=== PATIENT | male | born 1955 | race Caucasian/White ===

== ENCOUNTER 2019-01-31 22:58 | Observation (INO) ==
[2019-01-31] MEDS ORDERED: Ipratropium/Albuterol Neb 3 ML IH ONE (23:08)
--- NOTE | 2019-01-31 23:18 | Emergency Department Note ---
Disposition Clinical Impression: Near syncope, [place] (acute kidney injury) Congestive heart failure Qualifiers: Heart failure type: unspecified Heart failure chronicity: acute on chronic Qualified Code(s): I50.9 - Heart failure, unspecified Disposition: Admitted As Inpatient Condition: Undetermined Referrals: NONE,PCP [Primary Care Provider] - Forms: ED Satisfaction Letter Time of Disposition: 02:22 SOB HPI - General Chief Complaint: ED Shortness of Breath/Dyspnea Stated Complaint: weakness DEMARCUS Time Seen by Provider: 01/31/19 23:07 Source: patient, EMS Mode of arrival: EMS Limitations: no limitations Nursing Notes Reviewed: Yes Vital Signs Reviewed: Yes - History of Present Illness 63-year-old male with history of congestive heart failure, previous history of [place], with a pacemaker, hypertension, hyperlipidemia, COPD arrives to the emerge ncy department with complaint of generalized weakness, charley horses, cramping and shortness of breath. Patient states this started a couple days ago is progressively worsening. Patient's daughter advised that she come to the emergency department. Patient arrives via EMS. He was given a DuoNeb and 500 mL of IV fluids in route. Patient has bilateral lower extremity swelling. Patient denies any chest pain, abdominal pain, nausea, vomiting, diarrhea. He admits to some intermittent chills. No other acute process noted. - Related Data Home Medications Medication Instructions Recorded Confirmed Aspirin Enteric Coated [Aspirin EC] 81 mg PO DAILY 07/22/15 02/13/16 Atorvastatin [Lipitor] 40 mg PO HS 07/22/15 02/13/16 Benazepril HCl [Lotensin] 40 mg PO DAILY 07/22/15 02/13/16 Meloxicam [Mobic] 15 mg PO DAILY 07/22/15 02/13/16 amLODIPine [Norvasc] 5 mg PO DAILY 07/22/15 02/13/16 hydroCHLOROthiazide 25 mg PO DAILY 07/22/15 02/13/16 [Hydrochlorothiazide] Hydrocortisone [Cortef] 5 mg PO QPM 02/13/16 02/13/16 Hydrocortisone [Cortef] 15 mg PO QAM 02/13/16 02/13/16 Levothyroxine [Synthroid] 88 mcg PO DAILY 02/13/16 02/13/16 Previous Rx's Medication Instructions Recorded Albuterol Sulfate [Ventolin Hfa] 18 gm IH Q4HR PRN #1 hfa.aer.ad 02/14/16 GuaiFENesin/Codeine [Robitussin 5 ml PO Q6HR PRN #150 liquid 02/14/16 w/Codeine] levoFLOXacin [Levaquin] 500 mg PO DAILY #7 tablet 02/14/16 Furosemide [Lasix] 40 mg PO DAILY #7 tablet 02/24/17 Potassium Chloride [K-Tab ER] 20 meq PO DAILY #7 tablet.er 02/24/17 Allergies Allergy/AdvReac Type Severity Reaction Status Date / Time carvedilol AdvReac Chest Pain Verified 02/13/16 11:00 metoprolol AdvReac Hypotension Verified 02/13/16 11:00 All systems ED: reviewed and negative except as stated. Constitutional: Reports: chills, weakness. Denies: fever Eyes: Denies: vision change ENT ED: Denies: dysphagia Cardiovascular: Reports: edema. Denies: chest pain, dyspnea on exertion, orthopnea, syncope Respiratory: Reports: cough, dyspnea. Denies: wheezes, sputum production Gastrointestinal: Denies: abdominal pain, nausea, vomiting Genitourinary: Denies: urgency, dysuria Musculoskeletal: Reports: myalgia. Denies: back pain, neck pain Integumentary: Denies: rash Neurological: Denies: headache Past Medical History - Past Medical History Attestation: Yes The following information was validated with the patient. Source: patient, old records reviewed Medical history: Reports: arthritis, coronary artery disease, GERD, hyperlipidemia, hypertension, myocardial infarction, thyroid disease Surgical history: Reports: coronary bypass (CABG), herniorrhaphy Psychiatric history: Reports: no psych history - Social History Smoking Status: Never smoker Smokeless Tobacco Status: No Alcohol use: Reports: none Drug use: Reports: none Physical Exam - General Limitations: no limitations General appearance: alert, in no apparent distress - Head Head exam: atraumatic, normocephalic, normal inspection - Eye Eye exam: Present: normal appearance, PERRL, EOMI - ENT ENT exam: normal exam, normal oropharynx, mucous membranes moist - Neck Neck exam: Present: normal inspection, full ROM, trachea midline - Chest Chest inspection: Present: normal inspection, symmetric chest wall rise - Respiratory Respiratory exam: Present: other (Coarse breath sounds with bibasilar rales). Absent: respiratory distress, wheezes - Cardiovascular Cardiovascular exam: Present: regular rate, normal rhythm, normal heart sounds - Abdominal Exam Abdominal exam: Present: soft, Non-Tender. Absent: tenderness, distention, guarding, rebound, rigidity - Extremities Exam Extremities exam: Present: full ROM, normal capillary refill, pedal edema (2+ pitting). Absent: tenderness - Neurological Exam Neurological exam: Present: alert, oriented X3 - Skin Skin exam: Present: warm, dry, intact, normal color Course Vital Signs Temperature 98.2 F 01/31/19 23:04 Pulse Rate 93 01/31/19 23:04 Respiratory Rate 22 01/31/19 23:04 Blood Pressure 148/119 01/31/19 23:04 O2 Sat by Pulse Oximetry 95 01/31/19 23:04 Temperature 98.2 F 01/31/19 23:04 Pulse Rate 81 02/01/19 01:25 Respiratory Rate 18 02/01/19 01:25 Blood Pressure 100/53 02/01/19 01:25 O2 Sat by Pulse Oximetry 95 02/01/19 01:25 Oxygen Delivery Oxygen Delivery Room Air Shortness of Breath/Dyspnea - [facility] Narrative Medical decision making narrative: Patient's workup in the emergency department demonstrates no acute process to account for patient's symptoms. She does have a mild acute kidney injury. Upon further questioning this with patient's daughter stated the patient had a near syncopal episode. He fell and struck his head but did not lose consciousness not complaining of any pain at this time. He takes no anticoagulation. The patient will be administered some IV Lasix here in the ED and will be admitted to the hospital for further workup and observation. Patient made aware and agrees to plan. No further questions or concerns noted. - Lab Data Lab results reviewed: Yes I reviewed the patient's lab results. Result diagrams: 02/01/19 00:09 02/01/19 00:09 Lab Results 02/01/19 02/01/19 02/01/19 Range/Units 00:09 00:09 00:09 WBC 17.0 H (4.3-11.1) K/mcL RBC 4.30 (4.19-5.50) M/mcL Hgb 13.6 (12.9-16.9) g/dL Hct 40.3 (37.5-50.1) % MCV 93.7 (83.0-100.0) fL MCH 31.6 (28.0-33.3) pg MCHC 33.7 (31.6-35.5) g/dL RDW 13.6 (11.5-14.5) % Plt Count 210 (140-400) K/mcL MPV 10.8 (9.4-12.4) fL Immature Gran % 0.8 (0-4) % Seg Neutrophils % 89.4 % Lymphocytes % 3.3 % Monocytes % 5.9 % Eosinophils % 0.2 % Basophils % 0.4 % Neutrophils # 15.2 H (1.6-8.9) K/mcL Lymphocytes # 0.6 (0.6-4.6) K/mcL Monocytes # 1.0 (0.0-1.3) K/mcL Eosinophils # 0.0 (0.0-0.6) K/mcL Basophils # 0.1 (0.0-0.2) K/mcL Sodium 136 (136-145) mEq/L Potassium 3.4 L (3.5-5.1) mEq/L Chloride 99 (98-107) mEq/L Carbon Dioxide 27 (23-29) mEq/L BUN 27 H (8-23) mg/dL Creatinine 1.54 H (0.70-1.30) mg/dL Est GFR ( Amer) 55 L (> 60) Est GFR (Non-Af Amer) 46 L (> 60) BUN/Creatinine Ratio 18 (6-26) Glucose 132 H (70-105) mg/dL Calculated Osmolality 289 (280-300) Calcium 9.1 (8.6-10.3) mg/dL Troponin I 0.03 (< 0.04) ng/mL B-Natriuretic Peptide 44 (Less than 100) pg/mL - Radiology Data Radiology results reviewed: Yes I reviewed the patient's radiology results. Chest X-Ray 01/31/19 23:07 IMPRESSION: Stable study showing large hiatal hernia. D/ / Gayatri Hsu Cha, MD / Gayatri Hsu Cha, MD Interpreting Provider: Gayatri Hsu Cha, MD - EKG Data EKG results narrative: Heart rate 84 beats for minute. Normal sinus rhythm with left bundle branch block. Intermittent episodes of paced rhythm. The patient does have some ST depression and ST elevation that appears similar to previous EKG of from 02/24/2017. The patient does NOT meet Sgarbossa criteria for ACS.
[2019-02-01 00:53] LABS: Basophils # 0.1 K/mcL (0.0-0.2); Basophils % 0.4 %; Eosinophils % 0.2 %; Hematocrit 40.3 % (37.5-50.1); Hemoglobin 13.6 g/dL (12.9-16.9); Immature Granulocytes % 0.8 % (0-4); Lymphocytes # 0.6 K/mcL (0.6-4.6); Lymphocytes % 3.3 %; Mean Corpuscular HGB Conc 33.7 g/dL (31.6-35.5); Mean Corpuscular Hemoglobin 31.6 pg (28.0-33.3); Mean Corpuscular Volume 93.7 fL (83.0-100.0); Mean Platelet Volume 10.8 fL (9.4-12.4); Monocytes % 5.9 %; Neutrophils # 15.2 K/mcL (1.6-8.9); Platelet Count 210 K/mcL (140-400); Red Cell Distribution Width 13.6 % (11.5-14.5); Segmented Neutrophils % 89.4 %
[2019-02-01 00:57] LABS: Calcium 9.1 mg/dL (8.6-10.3); Potassium 3.4 mEq/L (3.5-5.1)
[2019-02-01 00:58] LABS: Troponin I 0.03 ng/mL (< 0.04)
[2019-02-01] MEDS ORDERED: Furosemide 40 MG/4 ML VIAL IVP ONE (02:03)
--- NOTE | 2019-02-01 03:03 | Emergency Department Note ---
Disposition Clinical Impression: Near syncope, [place] (acute kidney injury) Congestive heart failure Qualifiers: Heart failure type: unspecified Heart failure chronicity: acute on chronic Qualified Code(s): I50.9 - Heart failure, unspecified Disposition: Admitted As Inpatient Condition: Fair Referrals: NONE,PCP [Primary Care Provider] - Forms: ED Satisfaction Letter General Adult HPI - General Chief complaint: ED Shortness of Breath/Dyspnea Stated complaint: weakness DEMARCUS Time Seen by Provider: 01/31/19 23:07 Source: patient, EMS Mode of arrival: EMS Limitations: no limitations Nursing Notes Reviewed: Yes Vital Signs Reviewed: Yes - History of Present Illness Pain Scale: 0 - Related Data Home Medications Medication Instructions Recorded Confirmed Aspirin Enteric Coated [Aspirin EC] 81 mg PO DAILY 07/22/15 02/13/16 Atorvastatin [Lipitor] 40 mg PO HS 07/22/15 02/13/16 Benazepril HCl [Lotensin] 40 mg PO DAILY 07/22/15 02/13/16 Meloxicam [Mobic] 15 mg PO DAILY 07/22/15 02/13/16 amLODIPine [Norvasc] 5 mg PO DAILY 07/22/15 02/13/16 hydroCHLOROthiazide 25 mg PO DAILY 07/22/15 02/13/16 [Hydrochlorothiazide] Hydrocortisone [Cortef] 5 mg PO QPM 02/13/16 02/13/16 Hydrocortisone [Cortef] 15 mg PO QAM 02/13/16 02/13/16 Levothyroxine [Synthroid] 88 mcg PO DAILY 02/13/16 02/13/16 Previous Rx's Medication Instructions Recorded Albuterol Sulfate [Ventolin Hfa] 18 gm IH Q4HR PRN #1 hfa.aer.ad 02/14/16 GuaiFENesin/Codeine [Robitussin 5 ml PO Q6HR PRN #150 liquid 02/14/16 w/Codeine] levoFLOXacin [Levaquin] 500 mg PO DAILY #7 tablet 02/14/16 Furosemide [Lasix] 40 mg PO DAILY #7 tablet 02/24/17 Potassium Chloride [K-Tab ER] 20 meq PO DAILY #7 tablet.er 02/24/17 Allergies Allergy/AdvReac Type Severity Reaction Status Date / Time carvedilol AdvReac Chest Pain Verified 02/13/16 11:00 metoprolol AdvReac Hypotension Verified 02/13/16 11:00 Constitutional: Reports: chills, weakness. Denies: fever Eyes: Denies: vision change ENT ED: Denies: dysphagia Cardiovascular: Reports: edema. Denies: chest pain, dyspnea on exertion, orthopnea, syncope Respiratory: Reports: cough, dyspnea. Denies: wheezes, sputum production Gastrointestinal: Denies: abdominal pain, nausea, vomiting Genitourinary: Denies: urgency, dysuria Musculoskeletal: Reports: myalgia. Denies: back pain, neck pain Integumentary: Denies: rash Neurological: Denies: headache Past Medical History - Past Medical History Medical history: Reports: arthritis, coronary artery disease, GERD, hyperlipidemia, hypertension, myocardial infarction, thyroid disease Surgical history: Reports: coronary bypass (CABG), herniorrhaphy Psychiatric history: Reports: no psych history - Social History Smoking Status: Never smoker Smokeless Tobacco Status: No Alcohol use: Reports: none Drug use: Reports: none Physical Exam - General Limitations: no limitations General appearance: alert, in no apparent distress Course Vital Signs Temperature 98.2 F 01/31/19 23:04 Pulse Rate 93 01/31/19 23:04 Respiratory Rate 22 01/31/19 23:04 Blood Pressure 148/119 01/31/19 23:04 O2 Sat by Pulse Oximetry 95 01/31/19 23:04 Temperature 98.2 F 01/31/19 23:04 Pulse Rate 81 02/01/19 01:25 Respiratory Rate 18 02/01/19 01:25 Blood Pressure 100/53 02/01/19 01:25 O2 Sat by Pulse Oximetry 95 02/01/19 01:25 Oxygen Delivery Oxygen Delivery Room Air Medical Decision Making - Medical Records Medical records reviewed: Yes I reviewed the patient's medical records. - Lab Data Lab results reviewed: Yes I reviewed the patient's lab results. Result diagrams: 02/01/19 00:09 02/01/19 00:09 Lab Results 02/01/19 02/01/19 02/01/19 Range/Units 00:09 00:09 00:09 WBC 17.0 H (4.3-11.1) K/mcL RBC 4.30 (4.19-5.50) M/mcL Hgb 13.6 (12.9-16.9) g/dL Hct 40.3 (37.5-50.1) % MCV 93.7 (83.0-100.0) fL MCH 31.6 (28.0-33.3) pg MCHC 33.7 (31.6-35.5) g/dL RDW 13.6 (11.5-14.5) % Plt Count 210 (140-400) K/mcL MPV 10.8 (9.4-12.4) fL Immature Gran % 0.8 (0-4) % Seg Neutrophils % 89.4 % Lymphocytes % 3.3 % Monocytes % 5.9 % Eosinophils % 0.2 % Basophils % 0.4 % Neutrophils # 15.2 H (1.6-8.9) K/mcL Lymphocytes # 0.6 (0.6-4.6) K/mcL Monocytes # 1.0 (0.0-1.3) K/mcL Eosinophils # 0.0 (0.0-0.6) K/mcL Basophils # 0.1 (0.0-0.2) K/mcL Sodium 136 (136-145) mEq/L Potassium 3.4 L (3.5-5.1) mEq/L Chloride 99 (98-107) mEq/L Carbon Dioxide 27 (23-29) mEq/L BUN 27 H (8-23) mg/dL Creatinine 1.54 H (0.70-1.30) mg/dL Est GFR ( Amer) 55 L (> 60) Est GFR (Non-Af Amer) 46 L (> 60) BUN/Creatinine Ratio 18 (6-26) Glucose 132 H (70-105) mg/dL Calculated Osmolality 289 (280-300) Calcium 9.1 (8.6-10.3) mg/dL Troponin I 0.03 (< 0.04) ng/mL B-Natriuretic Peptide 44 (Less than 100) pg/mL - Radiology Data Radiology results reviewed: Yes I reviewed the patient's radiology results. Chest X-Ray 01/31/19 23:07 IMPRESSION: Stable study showing large hiatal hernia. D/ / Gayatri Hsu Cha, MD / Gayatri Hsu Cha, MD Interpreting Provider: Gayatri Hsu Cha, MD - EKG Data EKG #1 EKG attestation: Yes I reviewed and interpreted this EKG. EKG results narrative: EKG shows a paced rhythm with ventricular rate of 84. Attestation Statement - Attestation Attestation: I, Wilian Lion MD, personally evaluated this patient and discussed their management with the resident physician. I reviewed the resident's note and agree with the documented findings, medical decision making, and plan of care. 63-year-old male presents to the emergency department with a complaint of increasing cough and congestion over the past few days. Increasing shortness of breath. Also complains of severe generalized weakness. Leg cramps. Patient had difficulty transferring from the EMS stretcher over to the ED stretcher. On examination patient is a well-developed morbidly obese elderly male in no acute distress. He is alert and oriented 3. There is no cyanosis or diaphoresis. Breath sounds are decreased bilaterally. Heart regular rate and rhythm. Abdomen is soft and nontender with normal bowel sounds. One plus pedal edema. EKG shows a paced rhythm with rate of 84. Labs reviewed. Chest x-ray stable with large hiatal hernia. The hospitalist, Dr. Tidwell, was consulted and accepted admission of the patient.
[2019-02-01] MEDS ORDERED: Naloxone 0.4 MG/ML INJ IVP PRN (06:21)
[2019-02-01] MEDS ORDERED: Albuterol 2.5 MG/3 ML NEBULIZER IH PRN (06:27)
--- NOTE | 2019-02-01 06:36 | Internal Med History&Physical ---
Date of Encounter: 02/01/19 Time of Encounter: 05:27 Internal Medicine - H&P: HPI Chief complaint: Near syncope Admitted From: Emergency Dept Plans for Post Hospital Care: Home History of present illness: Mr. Rios is a 63 year old male Patient presented to the emergency room with weakness and shortness of breath. He has a significant past medical history of pituitary tumor which has been resected, and pacemaker placement for bradycardia. His symptoms of weakness and shortness of breath have worsened over the last couple days, and after losing his balance while attempting to go to the bathroom, his daughter called the ambulance to take him to the emergency room. His symptoms began about 2 days ago, he noted chills and sweating at home. He has been more weak on his feet as well. When he attempted to go the bathroom at home he says that he fell up against the bathroom cabinet but did not fall completely to the ground. He has had symptoms like this before in the past, but he did not get them worked up. In the emergency room, patient's initial vital signs are within normal limits. Patient's CBC indicated a white count of 17.0, though patient is on chronic steroids. Patient's BMP was significant for a creatinine of 1.54. His troponin was 0.03 and chest x-ray indicated a large hiatal hernia. EKG was normal sinus rhythm with no ischemic changes. In the emergency room patient received one IV dose of Lasix and was admitted for further management. Upon my evaluation, patient is resting comfortably in hospital bed in no acute distress. He denies chest pain, abdominal pain, nausea, vomiting, diarrhea and constipation. He has had shortness of breath as indicated above as well as weakness. He is a family history of diabetes and heart problems on his mother's side but he did not know his father personally. He is a full code. Past Med Surg Social Fam HX - Past Medical History Medical history: arthritis, coronary artery disease, GERD, hyperlipidemia, hypertension, myocardial infarction, thyroid disease Additional medical history: BRADYCARDIA. CABG Psychiatric history: no psych history - Past Surgical History Surgical History: coronary bypass (CABG), herniorrhaphy Additional surgical history: back surgery-partial discectomy, pituitary tumor removed - Social History Smoking Status: Never smoker Smokeless Tobacco Status: No Alcohol use: none Drug use: none - Family History Mother Living Status: Hx Family Cardiac Disorders: Yes Internal Medicine - H&P: Meds Aspirin Enteric Coated [Aspirin EC] 81 mg PO DAILY 07/22/15 [History] Atorvastatin [Lipitor] 40 mg PO HS 07/22/15 [History] Benazepril HCl [Lotensin] 40 mg PO DAILY 07/22/15 [History] Meloxicam [Mobic] 15 mg PO DAILY 07/22/15 [History] amLODIPine [Norvasc] 5 mg PO DAILY 07/22/15 [History] hydroCHLOROthiazide [Hydrochlorothiazide] 25 mg PO DAILY 07/22/15 [History] Hydrocortisone [Cortef] 5 mg PO QPM 02/13/16 [History] Hydrocortisone [Cortef] 15 mg PO QAM 02/13/16 [History] Levothyroxine [Synthroid] 88 mcg PO DAILY 02/13/16 [History] Albuterol Sulfate [Ventolin Hfa] 18 gm IH Q4HR PRN #1 hfa.aer.ad 02/14/16 [Rx] GuaiFENesin/Codeine [Robitussin w/Codeine] 5 ml PO Q6HR PRN #150 liquid 02/14/16 [Rx] levoFLOXacin [Levaquin] 500 mg PO DAILY #7 tablet 02/14/16 [Rx] Furosemide [Lasix] 40 mg PO DAILY #7 tablet 02/24/17 [Rx] Potassium Chloride [K-Tab ER] 20 meq PO DAILY #7 tablet.er 02/24/17 [Rx] Allergy/AdvReac Type Severity Reaction Status Date / Time carvedilol AdvReac Chest Pain Verified 02/13/16 11:00 metoprolol AdvReac Hypotension Verified 02/13/16 11:00 All Systems PM: A 10-system review of systems was performed and is negative for pertinent findings except as documented above in the HPI. - Constitutional Vitals: Temp Pulse Resp BP Pulse Ox 98.3 F 76 14 109/67 92 02/01/19 04:48 02/01/19 04:48 02/01/19 04:48 02/01/19 04:48 02/01/19 04:48 General appearance: Present: cooperative, A&O X 3, pleasant, no acute distress, answers questions appropriately Exam: - - Head Head exam: Present: normal inspection - Eye Eye exam: Present: EOMI, normal appearance - Respiratory Respiratory exam: Present: CTAB. Absent: rales, respiratory distress, rhonchi, wheezes - Cardiovascular Cardiovascular exam: Present: RRR. Absent: diastolic murmur, systolic murmur - GI/Abdominal GI/Abdominal exam: Present: normal bowel sounds, soft. Absent: tenderness - Extremities Exam Extremities exam: Present: pedal edema, warm, radial pulses palpable and symmetrical. Absent: tenderness Additional comments: 1-2+ pitting edema - Neurological Exam Neurological exam: Present: no focal deficits, strengths equal and symetr throughout. Absent: motor sensory deficit, facial droop, speech deficit - Skin Skin exam: Present: dry, normal color, warm Internal Med - H&P Results - Labs CBC & Chem 7: 02/01/19 00:09 02/01/19 00:09 Labs: Short CBC 02/01/19 Range/Units 00:09 WBC 17.0 H (4.3-11.1) K/mcL Hgb 13.6 (12.9-16.9) g/dL Hct 40.3 (37.5-50.1) % Plt Count 210 (140-400) K/mcL Neutrophils # 15.2 H (1.6-8.9) K/mcL BMP 02/01/19 00:09 Sodium 136 Potassium 3.4 L Chloride 99 Carbon Dioxide 27 BUN 27 H Creatinine 1.54 H Glucose 132 H Calcium 9.1 Cardiac Enzymes 02/01/19 Range/Units 00:09 Troponin I 0.03 (< 0.04) ng/mL - Impressions ITS Impressions Chest X-Ray 01/31/19 23:07 IMPRESSION: Stable study showing large hiatal hernia. D/ / Gayatri Hsu Cha, MD / Gayatri Hsu Cha, MD Interpreting Provider: Gayatri Hsu Cha, MD - Assessment and Plan (1) Near syncope Current Visit: Yes Status: Acute Assessment and plan: Patient has a history of bradycardia status post pacemaker placement. He is not 100% sure the last time his pacemaker was interrogated, though he does follow-up with his doctor on a yearly basis. He had an echocardiogram performed in September of last year. The study was poor quality due to echocardiogram windows. Patient also takes steroids after having his pituitary gland operated on. He is unable to clarify his medication list. Repeat echocardiogram in the morning Giving 100 mg hydrocortisone IV, need to clarify home med list Consider cardiology consult for pacemaker interrogation (2) [place] (acute kidney injury) Current Visit: Yes Status: Acute Assessment and plan: Could be secondary to shortness of breath and low oxygen. During my evaluation patient became hypoxic with just conversation. Oxygen supplementation as needed BIPAP at night as at home Breathing treatments Renally dose meds Avoid nephrotoxic medications, monitor with lasix use. (3) Congestive heart failure Current Visit: Yes Status: Acute Assessment and plan: Patient received a dose of lasix in the ER. Does have bilateral swelling in lower extremities Continue IV lasix while monitoring kidney function Oxygen supplementation as needed Daily weights Strict I's&O's Qualifiers: Heart failure type: unspecified Heart failure chronicity: acute on chronic Qualified Code(s): I50.9 - Heart failure, unspecified (4) History of pituitary tumor Current Visit: Yes Status: Acute Assessment and plan: Patient takes steroids at home, though we do not have medication list finalized. Giving hydrocortisone IV now Continue home meds. (5) DVT prophylaxis Current Visit: Yes Status: Acute Assessment and plan: Subcutaneous heparin - Time Spent With Patient Total time spent is greater than 50% in coordination of care (as documented) at patient's floor/unit and/or counseling patient: Greater than 35 minutes
[2019-02-01] MEDS ORDERED: Hydrocortisone Sodium Succ 100 MG/2 ML VIAL IVP ONE (06:42)
[2019-02-01] MEDS: Acetaminophen 325 MG TABLET PO PRN ×2 (08:54→18:02)
[2019-02-01] MEDS ORDERED: predniSONE 20 MG TABLET PO SCH (09:00)
[2019-02-01] MEDS: Ipratropium/Albuterol Neb 3 ML IH SCH ×3 (10:51→22:44)
[2019-02-01] MEDS ORDERED: Hydrocortisone 10 MG TABLET PO SCH ×3 (12:45→18:00)
--- NOTE | 2019-02-01 12:49 | Event Note ---
Date of Encounter: 02/01/19 Time of Encounter: 09:45 H&P reviewed. Patient was admitted for near syncopal episode and questionable congestive heart failure. Was given Lasix overnight with no significant improvement in his symptom but with a drop in blood pressure. Pt endorses sick contact with URTI symptoms. Noted leukocytosis of 17 with neutrophilia. CXR unremarkable however, no urinary symptom. Will check respiratory viral panel and echocardiogram.
[2019-02-01 14:39] LABS: Adenovirus Not Detected (Not Detect); Coronavirus 229E Not Detected (Not Detect); Coronavirus HKU1 Not Detected (Not Detect); Coronavirus NL63 Not Detected (Not Detect); Coronavirus OC43 Not Detected (Not Detect)
[2019-02-01 14:40] LABS: Bordetella Pertussis Not Detected (Not Detect); Chlamydophila pneumoniae Not Detected (Not Detect); Human Metapneumovirus Not Detected (Not Detect); Human Rhinovirus/Enterovirus Not Detected (Not Detect); Influenza A Subtype 2009 H1 Not Detected (Not Detect); Influenza A Untypeable Not Detected (Not Detect); Influenza B Not Detected (Not Detect); Mycoplasma pneumoniae Not Detected (Not Detect); Parainfluenza Virus 1 Not Detected (Not Detect); Parainfluenza Virus 2 Not Detected (Not Detect); Parainfluenza Virus 3 Not Detected (Not Detect); Parainfluenza Virus 4 Not Detected (Not Detect); Respiratory Syncytial Virus Not Detected (Not Detect)
[2019-02-01] MEDS: *HR* Heparin 5,000 UNIT/ML VIAL SQ SCH (17:50)
[2019-02-02] MEDS: Ipratropium/Albuterol Neb 3 ML IH SCH ×2 (04:42→10:29)
[2019-02-02] MEDS: *HR* Heparin 5,000 UNIT/ML VIAL SQ SCH (06:07)
[2019-02-02 07:51] LABS: Basophils # 0.1 K/mcL (0.0-0.2); Basophils % 0.5 %; Eosinophils # 0.3 K/mcL (0.0-0.6); Eosinophils % 2.1 %; Hematocrit 38.3 % (37.5-50.1); Hemoglobin 13.3 g/dL (12.9-16.9); Immature Granulocytes % 0.7 % (0-4); Lymphocytes % 7.5 %; Mean Corpuscular HGB Conc 34.7 g/dL (31.6-35.5); Mean Corpuscular Hemoglobin 31.9 pg (28.0-33.3); Mean Corpuscular Volume 91.8 fL (83.0-100.0); Mean Platelet Volume 10.4 fL (9.4-12.4); Monocytes # 0.7 K/mcL (0.0-1.3); Monocytes % 5.4 %; Neutrophils # 10.9 K/mcL (1.6-8.9); Platelet Count 200 K/mcL (140-400); Red Blood Count 4.17 M/mcL (4.19-5.50); Red Cell Distribution Width 14.1 % (11.5-14.5); Segmented Neutrophils % 83.8 %
[2019-02-02 08:10] LABS: BUN/Creatinine Ratio 16 (6-26); Blood Urea Nitrogen 22 mg/dL (8-23); Calcium 9.2 mg/dL (8.6-10.3); Carbon Dioxide 29 mEq/L (23-29); Chloride 100 mEq/L (98-107); Glucose 112 mg/dL (70-105); Magnesium 2.2 mg/dL (1.6-2.6); Osmolality,Calculated 292 (280-300); Potassium 3.5 mEq/L (3.5-5.1); Sodium 139 mEq/L (136-145); eGFR For Non-African Americans 52 (> 60)
--- NOTE | 2019-02-02 08:26 | Electrocardiograph Report ---
[place] [id number] Test Date: 2019-01-31 Pat Name: Eliud Rios Department: [id number] Room: [id number] Gender: M Indexer: : 1955 Requested By: Farhan Schuler Order Number: [id number] Reading MD: Mariah Mclaughlin Measurements Intervals [place]yer Rate: 84 P: -33 UT: 139 QRS: -58 QRSD: 137 T: 175 QT: 418 QTc: 495 Interpretive Statements Sinus rhythm Left bundle branch block Left anterior fascicular block Premature complexes Electronically Signed On 02-02-2019 8:24:35 EDT by Mariah Mclaughlin
[2019-02-02] MEDS ORDERED: Hydrocortisone 10 MG TABLET PO SCH ×2 (09:00)
--- NOTE | 2019-02-02 16:04 | Discharge Summary ---
- NOTES TO OUTPATIENT PROVIDER Notes to Outpatient Provider: UMER-i and HCTZ held. Follow up with PCP and Cardiology as outpatient. Establish care with Nephrology for suspected CKD Stage III. Date of Encounter: 02/02/19 Time of Encounter: 13:00 - Discharge Diagnosis (1) Near syncope Priority: Primary Status: Acute (2) Viral syndrome Priority: Secondary Status: Acute (3) [id number] kidney injury Priority: Secondary Status: Suspected Qualifiers: Acute renal failure type: unspecified Chronic kidney disease stage: stage 3 (moderate) Qualified Code(s): N17.9 - Acute kidney failure, unspecified; N18.3 - Chronic kidney disease, stage 3 (moderate) (4) Congestive heart failure Priority: Secondary Status: Acute Qualifiers: Heart failure type: unspecified Heart failure chronicity: acute on chronic Qualified Code(s): I50.9 - Heart failure, unspecified (5) History of pituitary tumor Priority: Secondary Status: Acute Hospital course: Mr. Rios is a 63 year old male with history of CAD status post CABG, pituitary tumor resection on chronic steroid, bradycardia status post pacemaker insertion, who was admitted for near syncopal episode which appear to be related to orthostasis and viral syndrome. Echocardiogram was repeated to ensure there has not been any development of structural heart disease. Patient had leukocytosis on presentation which spontaneously improved without any antibiotics and is likely secondary to viral syndrome plus ongoing steroid use. No foci of infection noted. Cr also improved but remained around 1.2-3 (suspect underlying CKD). Due to his normal BP despite not taking any meds, UMER-i and HCTZ will remain on hold till PCP follow up. Also advised to the pt to establish care with nephrology for suspected CKD III. Discharge discussed with: patient, nurse - Time Spent with Patient Total time spent providing and/or coordinating discharge services: 28 mins - Discharge Medications Prescriptions: Continue Atorvastatin [Lipitor] 40 mg PO HS amLODIPine [Norvasc] 10 mg PO DAILY Levothyroxine [Synthroid] 125 mcg PO DAILY Hydrocortisone [Cortef] 5 mg PO QPM Hydrocortisone [Cortef] 10 mg PO QAM Discontinued hydroCHLOROthiazide [Hydrochlorothiazide] 25 mg PO DAILY Meloxicam [Mobic] 15 mg PO DAILY Benazepril HCl [Lotensin] 40 mg PO DAILY Home Medications: Atorvastatin [Lipitor] 40 mg PO HS 07/22/15 [History] amLODIPine [Norvasc] 10 mg PO DAILY 07/22/15 [History] Hydrocortisone [Cortef] 5 mg PO QPM 02/13/16 [History] Hydrocortisone [Cortef] 10 mg PO QAM 02/13/16 [History] Levothyroxine [Synthroid] 125 mcg PO DAILY 02/13/16 [History] Allergies/Adverse Reactions: Allergy/AdvReac Type Severity Reaction Status Date / Time carvedilol AdvReac Chest Pain Verified 02/13/16 11:00 metoprolol AdvReac Hypotension Verified 02/13/16 11:00 Date of admission: 02/01/19 03:28 Primary care physician: PCP NONE Consults: 02/01/19 06:28 Consult to Nurse Navigator [CONS] Routine Comment: - Constitutional Vitals: Temp Pulse Resp BP Pulse Ox 98.0 F 61 16 129/72 97 02/02/19 07:24 02/02/19 07:24 02/02/19 10:29 02/02/19 07:24 02/02/19 10:29 General appearance: Present: cooperative, A&O X 3, pleasant, no acute distress, answers questions appropriately Exam: General: Alert and oriented, not in acute distress.Obese male Cardiovascular:Normal S1 & S2, No JVD. Pulse regular. Lungs: clear to auscultation, no wheezes/rales Abdomen:Soft, non-tender, no rigidity. Extremities:No deformity or swelling Neurological:CN II-XII intact, power and sensation fully intact in all 4 limbs. No cerebellar signs, pronator drift -ve, Babinski downgoing bilaterally - Patient Status Disposition: Home, Self-Care Condition: Fair Functional capacity at discharge: independent ambulation Overall status at discharge: patient is progressing back to baseline - Discharge Instructions Instructions: Heart Failure (DC) Follow Up With: Lashawn Rainey MD [Partnered Physician] - NONE,PCP [Primary Care Provider] - Derick Lew DO [Partnered Physician] - Additional Instructions: UMER-i and HCTZ held. Follow up with PCP and cardiology for reinitiation of BP meds. Establish care with Nephrology as outpatient for suspected CKD - Diet and Activity Activity: resume usual activities as tolerated Diet: regular diet
[2019-02-02 16:12] VITALS: BP 125/78
== END 2019-02-02 17:19 | disposition home or self-care (01) ==
LOC: 2NENU 22:58 → EMEROOARM 22:58 → SUATTDRO 02-01 03:28 → 2NENU 02-01 04:18
PROVIDERS: ADMIT Family Medicine; ATTEND Internal Medicine